=== PATIENT | female | born 1990 ===

== ENCOUNTER 2016-12-13 14:44 | Emergency (ER) | payer SELFPAY ==
[~2016-12-13 14:44] MED LIST: BACTRIM DS1 TAB PO; PRENATAL1 TAB PO
[2016-12-13 15:09] LABS: URINE BILIRUBIN NEGATIVE (NEG); URINE BLOOD MODERATE (NEG); URINE GLUCOSE (UA) NEGATIVE (NEG); URINE KETONE NEGATIVE (NEG); URINE LEUKOCYTE ESTERASE NEGATIVE (NEG); URINE NITRITE NEGATIVE (NEG); URINE PROTEIN NEGATIVE (NEG)
[2016-12-13 15:13] LABS: URINE APPEARANCE HAZY
[2016-12-13 15:19] LABS: URINE WBC 0 /[HPF] (0-5)
[2016-12-13] MEDS ORDERED: MIRENA1 EACH (16:36)
[2016-12-13] MEDS ORDERED: ULTRAM50 M1 PO (19:20)
[2016-12-13] MEDS ORDERED: VIBRAMYCIN100 M1 PO (19:25)
[2016-12-13] MEDS ORDERED: FLAGYL500 M1 PO (19:25)
== END 2016-12-13 20:00 ==
LOC: EDMED 14:44
PROVIDERS: Emergency Medicine
DX: N76.0 Acute vaginitis (principal); B96.89 Other specified bacterial agents as the cause of diseases classified elsewhere; Z88.8 Allergy status to other drugs, medicaments and biological substances; F17.200 Nicotine dependence, unspecified, uncomplicated
CPT/HCPCS: J0696